=== PATIENT | female | born 1970 | race Caucasian/White ===

== ENCOUNTER 2020-01-29 08:14 | Emergency (ER) | payer OTHER ==
[2020-01-29 08:18] VITALS: BP 120/85; PULSE 86; TEMP 98.9; BMI 21.2
[2020-01-29] MEDS ORDERED: METOCLOPRAMIDE HCL INJECTION 10 MG/2 ML VIAL IVPB ONE (08:51)
[2020-01-29] MEDS ORDERED: SODIUM CHLORIDE 0.9% 500 ML INFUS.BAG IV ONE (08:51)
[2020-01-29] MEDS ORDERED: ACETAMINOPHEN 1000 MG/100 ML VIAL (NON FORMULARY) IVPB ONE (08:52)
[2020-01-29] MEDS ORDERED: METOCLOPRAMIDE HCL INJECTION 10 MG/2 ML VIAL ONE (08:56)
[2020-01-29] MEDS ORDERED: ACETAMINOPHEN INJECTION 100 ML IVPB ONE (08:57)
--- NOTE | 2020-01-29 08:57 | PDOC ---
History of Present Illness - General Chief Complaint: Headache Stated Complaint: HEADACHE Time Seen by Provider: 01/29/20 08:38 - History of Present Illness Initial Comments: Lucie Palomino is a 49 y/o female with PMH significant for anemia and s/p aneurysm clipping in 2018 at [facility] (Dr. Murphy) presenting today with headache for the past three days. States that the headache feels the same as her prior one 2 months ago. Reports left retro orbital sharp pain that radiates down to the neck. Took Tylenol for the past three days with minimal relief. States that the pain has been constant for the past three days with no changes in quality or severity. Reports nausea, no vomiting. No fever/chills. No vision changes/photophobia/phonophobia. No falls. No chest pain/shortness of breath. No abdominal pain. No back pain. No leg swelling. Past History - Medical History Allergies/Adverse Reactions: Allergies Allergy/AdvReac Type Severity Reaction Status Date / Time No Known Allergies Allergy Unverified 01/29/20 08:18 Home Medications: Ambulatory Orders NK [No Known Home Medication] 01/29/20 Anemia: Yes (Iron infusions) COPD: No Other medical history: Brain aneurism - Reproductive History Is Patient Now?: No - Psycho-Social/Smoking History Smoking History: Never smoked Information on smoking cessation initiated: No - Substance Abuse Hx (Audit-C & DAST Scrn) How often the patient has a drink containing alcohol: Never Score: In Men: 4 or > Positive; In Women: 3 or > Positive: 0 Screen Result (Pos requires Nsg. Audit-10AR): Negative In the last yr the pt used illegal drug/Rx for NonMed reason: No Score: Yes response is considered Positive: 0 Screen Result (Positive result requires Nsg. DAST-10): Negative Review of Systems - Review of Systems Comments:: GENERAL/CONSTITUTIONAL: No fever or chills. No weakness._ HEAD, EYES, EARS, NOSE AND THROAT: No change in vision. No change in hearing. No sore throat._ CARDIOVASCULAR: No chest pain or shortness of breath_ RESPIRATORY: Denies cough, hemoptysis_ GASTROINTESTINAL: Reports nausea. No vomiting, diarrhea or constipation._ GENITOURINARY: No dysuria, frequency, or change in urination._ MUSCULOSKELETAL: No joint or muscle swelling or pain. No neck or back pain._ SKIN: No rash_ NEUROLOGIC: Reports headache. No vertigo, loss of consciousness, or change in strength/sensation._ ENDOCRINE: No increased thirst. No abnormal weight change_ ALLERGIC/IMMUNOLOGIC: No hives or skin allergy._ *Physical Exam - Vital Signs Last Vital Signs Temp Pulse Resp BP Pulse Ox 98.9 F 86 18 120/85 98 01/29/20 08:16 01/29/20 08:16 01/29/20 08:16 01/29/20 08:16 01/29/20 08:16 - Physical Exam GENERAL: Awake, alert, and oriented to person/place/time, in no acute distress_ HEAD: No signs of trauma, normocephalic, atraumatic _ EYES: PERRLA, EOMI, sclera anicteric, conjunctiva clear_ ENT: Hearing grossly normal, nares patent, oropharynx clear without exudates. No uvular deviation. Moist mucosa_ NECK: Normal ROM, supple, no lymphadenopathy, JVD, or masses_ LUNGS: No distress, speaks in full sentences, clear to auscultation bilaterally _ HEART: Regular rate and rhythm, normal S1 and S2, no murmurs appreciated, peripheral pulses normal and equal bilaterally._ ABDOMEN: Soft, nontender, normoactive bowel sounds. No guarding, no rebound. No masses_ EXTREMITIES: Normal inspection, Normal range of motion, no edema. No clubbing or cyanosis_ NEUROLOGICAL: CN II-XII tested and intact. Sensation intact to sharp/dull differentiation in all extremities. Motor: Normal tone and bulk. No abnormal movements appreciated. No pronator drift. Strength tested and 5/5 in bilateral wrist flexion/extension, elbow flexion/extension, shoulder abduction, straight leg raise, knee flexion/extension, ankle dorsiflexion/plantarflexion. Patient ambulates with a steady gait. Coordination: Finger to nose and heel to valdez testing intact bilaterally. SKIN: Warm, Dry, normal turgor, no rashes or lesions noted_ Medical Decision Making - Medical Decision Making 01/29/20 08:52 49F hx of anemia and s/p aneurysm clipping in 2018 at [facility] presenting today with left sided retro-orbital pain radiating down left face to left neck. Same as prior headache 2 months ago. No focal neuro findings. DDx IBNLT SAH vs migraine vs tension headache. -fluids, tylenol, reglan, benadryl -CT head 01/29/20 09:54 CT head negative for acute intracranial pathology. No significant interval change from prior. 01/29/20 10:07 Pt reassessed. Reports significant improvement of pain. Plan to d/c home with PCP and neuro f/u. All questions answered. Return precautions given. Pt verbalized understanding and agreement with plan. Discharge - Discharge Information Problems reviewed: Yes Clinical Impression/Diagnosis: Migraine headache Qualifiers: Intractability: not intractable Condition: Improved Disposition: HOME - Admission No - Follow up/Referral - Patient Discharge Instructions Additional Instructions: Please make a follow up appointment with your primary care doctor and a neurologist to follow up your headaches. If you experience any new, worsening, or concerning symptoms, including new or worsening headache, dizziness, nausea/vomiting, vision changes, neck stiffness, or any other concerns, please return to the emergency department. - Post Discharge Activity
--- NOTE | 2020-01-29 09:04 | PDOC ---
Attending Attestation - Resident Resident Name: SantanaAntoninaMichael - ED Attending Attestation I have performed the following: I have examined & evaluated the patient, The case was reviewed & discussed with the resident, I agree w/resident's findings & plan, Exceptions are as noted - HPI HPI: 01/29/20 09:02 49y M hx of brain aneursym sp clipping presenting with headache. Pt notes frequent headaches that usually improves with motrin, however she was told she should not take motrin so she took tylenol without improvement for the past few days. similar in previous to her headaches, but not resolved with motrin associated with nausea. Pt denies any focal neuro sx including vision changes, numbness/tinglingw/eankess,. pt describes the pain as a pressure like pain onher R parital scalp and is non radiating. no recent trama, fever/chills, vomiing. - Physicial Exam PE: 01/29/20 11:16 Exam: GENERAL: The patient is awake, alert, and fully oriented, Nontoxic - in no acute distress. HEAD: Normocephalic, atraumatic. EYES: extraocular movements intact, sclera anicteric, conjunctiva clear. NEUROLOGICAL: No facial assymetry, Normal speech, moving all 4 exremities spontaneously and symmetrically PSYCH: Normal mood, normal affect. SKIN: Warm, Dry, normal turgor, - Medical Decision Making tension vs migraine headache consider related to anyrsum but low suspcion of bleed as similar tp previous will obtain CT of head to r/o bleed will give analgesia willr easess 01/29/20 11:16 01/29/20 11:16 pt feels significant releif no headache currently ct head neg will dc with PMD fu return precautions were discussed Discharge - Discharge Information Problems reviewed: Yes Clinical Impression/Diagnosis: Migraine headache Qualifiers: Migraine type: unspecified Status migrainosus presence: without status migrainosus Intractability: not intractable Qualified Code(s): G43.909 - Migraine, unspecified, not intractable, without status migrainosus Condition: Improved Disposition: HOME - Additional Discharge Information Prescriptions: Tramadol HCl 50 mg PO QID PRN #12 tablet MDD 4 PRN Reason: Pain - Follow up/Referral Referrals: [facility] [place] [facility] [place] [Provider Group] John Oliveira MD [Staff Physician] - - Patient Discharge Instructions Patient Printed Discharge Instructions: DI for Migraine Additional Instructions: Please make a follow up appointment with your primary care doctor and a neurologist to follow up your headaches. If you experience any new, worsening, or concerning symptoms, including new or worsening headache, dizziness, nausea/vomiting, vision changes, neck stiffness, or any other concerns, please return to the emergency department. - Post Discharge Activity
== END 2020-01-29 11:35 | disposition home or self-care (01) ==
LOC: JER 08:14
PROC: 3E033NZ Introduction of Analgesics, Hypnotics, Sedatives into Peripheral Vein, Percutaneous Approach (ICD-10-PCS; principal; 2020-01-29)
PROC: 3E033GC Introduction of Other Therapeutic Substance into Peripheral Vein, Percutaneous Approach (ICD-10-PCS; 2020-01-29)
DX: G43.909 Migraine, unspecified, not intractable, without status migrainosus (principal)
CPT/HCPCS: 70450-TC; 99285-25; J0131

== ENCOUNTER 2020-02-20 18:18 | Emergency (ER) | payer OTHER ==
[2020-02-20 18:30] VITALS: BP 147/91; PULSE 85; TEMP 98.2; BMI 21.2
--- NOTE | 2020-02-20 18:37 | PDOC ---
History of Present Illness - General Chief Complaint: Headache Stated Complaint: VOMITING Time Seen by Provider: 02/20/20 18:37 Past History - Medical History Allergies/Adverse Reactions: Allergies Allergy/AdvReac Type Severity Reaction Status Date / Time No Known Allergies Allergy Unverified 01/29/20 08:18 Home Medications: Ambulatory Orders Tramadol HCl 50 mg PO QID PRN #12 tablet MDD 4 01/29/20 Anemia: Yes (Iron infusions) COPD: No Other medical history: Brain Annurysm - Reproductive History Is Patient Now?: No - Psycho-Social/Smoking History Smoking History: Never smoked - Substance Abuse Hx (Audit-C & DAST Scrn) How often the patient has a drink containing alcohol: Never Score: In Men: 4 or > Positive; In Women: 3 or > Positive: 0 Screen Result (Pos requires Nsg. Audit-10AR): Negative *Physical Exam - Vital Signs Last Vital Signs Temp Pulse Resp BP Pulse Ox 98.2 F 85 20 147/91 98 02/20/20 18:24 02/20/20 18:24 02/20/20 18:24 02/20/20 18:24 02/20/20 18:24
[2020-02-20] MEDS ORDERED: METOCLOPRAMIDE HCL INJECTION 10 MG/2 ML VIAL IVPB ONE (18:42)
[2020-02-20] MEDS ORDERED: SODIUM CHLORIDE 0.9% 500 ML INFUS.BAG IV ONE (18:42)
[2020-02-20] MEDS ORDERED: ACETAMINOPHEN 500 MG TABLET (FP) PO ONE (18:42)
--- OUTSIDE RECORDS SUMMARY | 2020-02-20 18:42 | XMS ---
:1970 Author Organization [facility] Support Name Relationship Address Phone UE Unavailable Unavailable Unavailable UNK Unavailable Unavailable Unavailable BERNADINE PALMAKARTHIKEYAN FRIEND [address] [place] [address] SKYE PALMA Other [address] [address] Re-disclosure Warning The records that you are about to access may contain information from federally- assisted alcohol or drug abuse programs. If such information is present, then the following federally mandated warning applies: This information has been disclosed to you from records protected by federal confidentiality rules (42 CFR part 2). The federal rules prohibit you from making any further disclosure of this information unless further disclosure is expressly permitted by the written consent of the person to whom it pertains or as otherwise permitted by 42 CFR part 2. A general authorization for the release of medical or other information is NOT sufficient for this purpose. The Federal rules restrict any use of the information to criminally investigate or prosecute any alcohol or drug abuse patient.The records that you are about to access may contain highly sensitive health information, the redisclosure of which is protected by Article 27-F of the [facility] Public Health law. If you continue you may haveaccess to information: Regarding HIV / AIDS; Provided by facilities licensed or operated by the [facility] Office of Mental Health; or Provided by the [facility] Office for People With Developmental Disabilities. If such information is present, then the following [facility] mandated warning applies: This information has been disclosed to you from confidential records which are protected by state law. State law prohibits you from making any further disclosure of this information without the specific written consent of the person to whom it pertains, or as otherwise permitted by law. Any unauthorized further disclosure in violation of state law may result in a fine or residential sentence or both. A general authorization for the release of medical or other information is NOT sufficient authorization for further disclosure. Insurance Providers Payer name Policy type Policy ID Covered Covered constitution party's Policy P orlando / Coverage constitution party ID relationship to [employer] Inf ormation type fierro [place] MEDICAID [id number] SP [id number] [id number] CARE HMO/POS/EPO SELF PAY SP INSURANCE
[2020-02-20] MEDS ORDERED: FAMOTIDINE 20 MG/50 ML IVPB 20 MG/50 ML MG IVPB ONE (18:49)
[2020-02-20] MEDS ORDERED: ACETAMINOPHEN 1000 MG/100 ML VIAL (NON FORMULARY) IVPB ONE (18:49)
--- NOTE | 2020-02-20 18:50 | PDOC ---
History of Present Illness <Lucie Mercado - Last Filed: 02/20/20 21:51> - General History Source: Patient, Family Exam Limitations: No Limitations <Isela Lala - Last Filed: 02/20/20 21:53> - General Chief Complaint: Headache Stated Complaint: VOMITING Time Seen by Provider: 02/20/20 18:37 Past History - Medical History Anemia: Yes (Iron infusions) COPD: No Other medical history: Brain Annurysm - Reproductive History Is Patient Now?: No - Psycho-Social/Smoking History Smoking History: Never smoked - Substance Abuse Hx (Audit-C & DAST Scrn) How often the patient has a drink containing alcohol: Never Score: In Men: 4 or > Positive; In Women: 3 or > Positive: 0 Screen Result (Pos requires Nsg. Audit-10AR): Negative <Lucie Mercado - Last Filed: 02/20/20 21:51> <Isela Lala - Last Filed: 02/20/20 21:53> - Medical History Allergies/Adverse Reactions: Allergies Allergy/AdvReac Type Severity Reaction Status Date / Time No Known Allergies Allergy Unverified 01/29/20 08:18 Home Medications: Ambulatory Orders Tramadol HCl 50 mg PO QID PRN #12 tablet MDD 4 01/29/20 Metoclopramide HCl [Reglan -] 10 mg PO TID PRN #21 tablet 02/20/20 Prochlorperazine Maleate [Compazine] 5 mg PO TID PRN #21 tablet 02/20/20 *Physical Exam - Vital Signs Last Vital Signs Temp Pulse Resp BP Pulse Ox 98.2 F 85 20 147/91 98 02/20/20 18:24 02/20/20 18:24 02/20/20 18:24 02/20/20 18:24 02/20/20 18:24 <Lucie Mercado - Last Filed: 02/20/20 21:51> - Vital Signs Last Vital Signs Temp Pulse Resp BP Pulse Ox 98.2 F 85 20 147/91 98 02/20/20 18:24 02/20/20 18:24 02/20/20 18:24 02/20/20 18:24 02/20/20 18:24 <Isela Lala - Last Filed: 02/20/20 21:53> ED Treatment Course - LABORATORY CBC & Chemistry Diagram: 02/20/20 19:00 02/20/20 19:00 - RADIOLOGY Radiology Studies Ordered: Category Date Time Status HEAD CT WITHOUT CONTRAST [CT] Stat CT Scan 02/20/20 18:46 Ordered <Lucie Mercado - Last Filed: 02/20/20 21:51> - LABORATORY CBC & Chemistry Diagram: 02/20/20 19:00 02/20/20 19:00 - ADDITIONAL ORDERS Additional order review: Laboratory Results 02/20/20 02/20/20 02/20/20 19:05 19:00 19:00 Sodium 140 Potassium 3.4 L Chloride 102 Carbon Dioxide 30 Anion Gap 7 L BUN 11.2 Creatinine 0.6 Est GFR (CKD-EPI)AfAm 124.92 Est GFR (CKD-EPI)NonAf 107.78 Random Glucose 100 Calcium 9.1 Phosphorus 3.9 Magnesium 2.1 Total Bilirubin 0.2 AST 10 L ALT 16 Alkaline Phosphatase 57 Creatine Kinase 47 Troponin I < 0.02 Total Protein 7.8 Albumin 4.1 Lipase 79 Serum , Qual Negative Urine HCG, Qual Negative 02/20/20 19:00 RBC 4.54 MCV 82.3 MCHC 32.0 RDW 30.9 H MPV 9.1 Neutrophils % 70.0 Lymphocytes % 18.5 Monocytes % 7.7 Eosinophils % 2.2 D Basophils % 1.6 - Medications Given in the ED: ED Medications Discontinued Medications Generic Name Dose Route Start Last Admin Trade Name Freq PRN Reason Stop Dose Admin Acetaminophen 975 mg 02/20/20 18:42 02/20/20 19:14 Tylenol - PO 02/20/20 18:43 Not Given ONCE ONE Acetaminophen 1,000 mg 02/20/20 18:49 02/20/20 19:14 Ofirmev Injection - IVPB 02/20/20 18:50 1,000 mg ONCE ONE Administration Famotidine/Sodium Chloride 20 mg in 50 mls @ 100 mls/hr 02/20/20 18:49 02/20/20 19:14 Pepcid 20 Mg Premixed Ivpb - IVPB 02/20/20 19:18 100 mls/hr ONCE ONE Administration Potassium Chloride 10 meq in 100 mls @ 100 mls/hr 02/20/20 19:45 02/20/20 20:33 Potassium Chloride 10 Meq Premix Ivpb - IVPB 02/20/20 20:44 100 mls/hr Q60M ABDIEL Administration Metoclopramide HCl 10 mg 02/20/20 18:42 02/20/20 19:33 Reglan Injection - IVPB 02/20/20 18:43 10 mg ONCE ONE Administration Prochlorperazine Edisylate 10 mg 02/20/20 19:45 02/20/20 19:59 Compazine Injection - IVPB 02/20/20 19:46 10 mg ONCE ONE Administration Sodium Chloride 1,000 ml 02/20/20 18:42 02/20/20 19:13 Normal Saline - IV 02/20/20 18:43 1,000 ml ONCE ONE Administration <Isela Lala - Last Filed: 02/20/20 21:53> Medical Decision Making - Medical Decision Making 02/20/20 19:03 HPI: 49yo F hx anemia and s/p aneurysm clipping in 2018 at [facility] (Dr. Murphy) presents from home c/o 3 days gradual onset pressure type intermittent headache of moving location (bitemporal to occiput/back of neck) nothing makes better or worse with associated nausea and emesis x30. Today after multiple episodes of emesis pt has developed epigastric pain and had minimal bright red blood in emesis. Pt tried tramadol only today without improvement. Pt states presentation exactly same as 2 years ago when had aneurysm but at that time she had L sided eyelid drooping which is not present now. Presentation also the same as last 2 ED visits (last 1mo ago) when had no acute bleed on CTH and was discharged home. Last headache was 1mo ago, came here to ED. Denies photophobia, vision changes, numbness/tingling, weakness, facial droop, difficulty walking or talking, dizziness, syncope, CP, SOB, cough, recent illness, neck stiffness, fever, back pain. Called neurosurgeon after last visit who said everything was fine due to lack of blood in CTH. Scheduled to visit PCP next week and get referral for Neurology. Denies etoh/smoking/drugs. ROS: Constitutional: Positive for chills. Negative for fever, fatigue, diaphoresis. HENT: Negative for sore throat, rhinorrhea, congestion. Eyes: Negative for visual disturbance. Respiratory: Negative for shortness of breath, cough, and wheezing. Cardiovascular: Negative for chest pain, palpitations, and leg swelling. Gastrointestinal: Positive for nausea, and vomiting. Negative for abdominal pain, blood in stool, constipation, diarrhea. Genitourinary: Negative for dysuria, flank pain, and hematuria. Musculoskeletal: Negative for myalgias, back pain, and neck pain. Skin: Negative for rash. Neurological: Positive for headaches. Negative for light-headedness, dizziness, vertigo, syncope, weakness, numbness. Psychiatric/Behavioral: Negative for behavioral problems and confusion. PE: Gen: Alert, NAD, uncomfortable-appearing, dry heaving HEENT: PERRL, EOMI, MMM, NCAT. No conjunctival pallor. Sclera are non-icteric. CV: Regular rate and rhythm. No murmurs, rubs, or gallops. PULM: No resp distress. CTAB, no wheezes, rales, or rhonchi. ABD: soft, NT/ND, no rebound tenderness or guarding, no CVA tenderness. BACK: No TTP of c/t/l-spine. No step-offs or deformities. MSK: No bony deformities. 2+ pulses in all extremities. NEURO: AAOx3. PERRL. No facial droop. CN 2-12 intact. 5/5 strength in all extremities. Sensation to light touch intact in all extremities. No abnormal nystagmus. Normal gait. EXTREMITIES: No cyanosis. No clubbing. No edema. No calf tenderness. PSYCH: Normal mood and thought pattern. SKIN: Warm and dry. Normal capillary refill. No rashes. No jaundice. MDM: 49yo F hx anemia and s/p aneurysm clipping in 2018 at [facility] (Dr. Murphy) presents from home c/o 3 days intermittent headache with associated nausea and emesis x30, similar to prior headaches (1 of which was 2/2 aneurysm, most benign). Hemodynamically stable, afebrile, neurologically intact. Ddx: ICH, aneurysm, migraine, cluster headache, tension headache, infection, metabolic derangement, anemia, reflux -EKG -CTH -CBC,CMP,Mg,Phos,Lipase,HCG,Cardiac profile -IVF -Pain and nausea management -Dispo: pending workup and reassessment 02/20/20 19:43 Labs reviewed. No concerning findings. K 3.4 -Replete K EKG reviewed: normal sinus rhythm, 83bpm, normal axis, normal intervals, TWI in III, biphasic T-wave in V3, no ST elevations or depressions, no priors for c omparison 02/20/20 21:41 CTH reviewed: no acute pathology Pt's pain resolved. Safe for d/c. Will discharge home with PCP and neuro f/u. Return precautions given. Pt understands all discharge instructions and all questions were answered. <Lucie Mercado - Last Filed: 02/20/20 21:51> Discharge - Discharge Information Problems reviewed: Yes - Admission No <Lucie Mercado - Last Filed: 02/20/20 21:51> <Isela Lala - Last Filed: 02/20/20 21:53> - Discharge Information Clinical Impression/Diagnosis: Headache Qualifiers: Headache type: other headache syndrome Qualified Code(s): G44.89 - Other headache syndrome Condition: Improved Disposition: HOME - Additional Discharge Information Prescriptions: Prochlorperazine Maleate [Compazine] 5 mg PO TID PRN #21 tablet PRN Reason: Headache Metoclopramide HCl [Reglan -] 10 mg PO TID PRN #21 tablet PRN Reason: Nausea And/Or Vomiting - Follow up/Referral Referrals: Zen Monsalve MD [Staff Physician] - Peewee Pedro MD [Staff Physician] - John Oliveira MD [Staff Physician] - - Patient Discharge Instructions Patient Printed Discharge Instructions: DI for Headache Additional Instructions: Lo delgado visto en el Departamento de Emergencias por correia dolor de ahsan. Correia ECG, tomografa computarizada de correia ahsan y los anlisis de laboratorio no muestran signos de ashley condicin emergente en piper momento. Si siente dolor, puede lakisha Tylenol o ibuprofeno cesar se indica en el frasco del medicamento, lilian no exceda los 3 g de ibuprofeno o 4 g de Tylenol al da. Tambin hemos enviado Reglan y Compazine a correia farmacia; tmelos segn sea necesario segn lo prescrito para las nuseas y el dolor de ahsan. Margo un seguimiento con correia mdico de atencin primaria dentro de 1 semana. Dereje le hemos remitido a un neurlogo; llame a correia consultorio por la maana para programar ashley davion de seguimiento. Regrese al Departamento de Emergencias inmediatamente si experimenta dificultad para hablar o caminar, empeoramiento del dolor de ahsan o vmitos, desmayo o cualquier otro sntoma nuevo o que empeora. You have been seen in the Emergency Department for your headache. Your EKG, CT scan of your head, and labs show no signs concerning for an emergent condition at this time. If you experience pain, you can take Tylenol or Ibuprofen as directed on the medication bottle, but do not exceed 3g of Ibuprofen or 4g of Tylenol a day. We have also sent Reglan and Compazine to your pharmacy - take as needed as prescribed for nausea and headache. Follow-up with your primary care doctor within 1 week. We have also given you a referral to a Neurologist - call his office in the morning to set up a follow-up appointment. Return to the Emergency Department immediately if you experience difficulty speaking or walking, worsening headache or vomiting, passing out, or any other new or worsening symptom. Print Language: TURKMEN
[2020-02-20 19:10] LABS: BASO % 1.6 % (0-2.0); EOS % 2.2 % (0-4.5); HEMATOCRIT 37.3 % (32.4-45.2); HEMOGLOBIN 11.9 GM/dL (10.7-15.3); LYMPH % 18.5 % (8-40); MCH 26.3 pg (25.7-33.7); MEAN CELL VOLUME 82.3 fl (80-96); MEAN PLT VOLUME 9.1 fl (7.5-11.1); MONO % 7.7 % (3.8-10.2); PLATELET COUNT 171 K/MM3 (134-434); RBC 4.54 M/mm3 (3.60-5.2); RDW 30.9 % (11.6-15.6)
[2020-02-20 19:38] LABS: ALBUMIN 4.1 g/dl (3.4-5.0); ALK PHOS 57 U/L (45-117); ANION GAP 7 MMOL/L (8-16); BILIRUBIN,TOTAL 0.2 mg/dL (0.2-1); BLOOD UREA NITROGEN 11.2 mg/dL (7-18); CALCIUM 9.1 mg/dL (8.5-10.1); CHLORIDE 102 mmol/L (98-107); CO2 30 mmol/L (21-32); CREATININE 0.6 mg/dL (0.55-1.3); GLUCOSE,RANDOM 100 mg/dL (74-106); LIPASE 79 U/L (73-393); MAGNESIUM 2.1 mg/dL (1.8-2.4); PHOSPHOROUS 3.9 mg/dL (2.5-4.9); POTASSIUM 3.4 mmol/L (3.5-5.1); SGOT/AST 10 U/L (15-37); SGPT/ALT 16 U/L (13-61); SODIUM 140 mmol/L (136-145); TOT PROT 7.8 g/dl (6.4-8.2)
[2020-02-20] MEDS ORDERED: PROCHLORPERAZINE INJECTION 10 MG/2 ML VIAL IVPB ONE (19:45)
[2020-02-20] MEDS ORDERED: KCL 10 MEQ IVPB 10 MEQ/100 ML INFUS.BAG IVPB SCH (19:45)
--- NOTE | 2020-02-20 19:48 | PDOC ---
Documentation entered by Jose Alejandro Mendes SCRIBE, acting as scribe for Isela Lala MD. Isela Lala MD: This documentation has been prepared by the Marty del [facility]sario inJose Alejandro SCRIBE, under my direction and personally reviewed by me in its entirety. I confirm that the documentation accurately reflects all work, treatment, procedures, and medical decision making performed by me. Attending Attestation - Resident Resident Name: Lucie Mercado - ED Attending Attestation I have performed the following: I have examined & evaluated the patient, The case was reviewed & discussed with the resident, I agree w/resident's findings & plan, Exceptions are as noted - HPI HPI: 02/20/20 18:47 The patient is a 49 year old female with a significant past medical history of brain aneurysm sp clipping who presents to the emergency department for evaluation of a headache that began three days ago. The patient reports nausea and approximately 30 episodes of NBNB vomiting which is now bloody emesis. She endorses this is the same presentation as one month ago and two years ago when she needed an aneurysm clipping. The patient notes having a disabled, inactive aneurysm. Denies focal neurological deficits. Denies fever, chills, chest pain, SOB, palpitation, dizziness, weakness, D, abdominal pain, bladder and bowel problems, leg swelling, No new changes in medications. Allergies: None Past Medical History: anemia and brain aneurysm sp clipping Social history: Lives with family. No tobacco, ETOH or drug use. Surgical history: brain aneurysm sp clipping (2018, Dr. Jeffrey Flaherty) Meds: as documented in EMR Neurologist: Dr. Oliveira 02/20/20 19:50 - Physicial Exam PE: 02/20/20 18:45 General: awake and alert, NAD. HEENT: NCAT, PERRL, EOMI, clear conjunctiva, anicteric, CN II to XII grossly intact, moist mucous membranes, clear oropharynx, no oral lesions.. Neck: neck supple, FROM Resp: CTAB, normal and even respirations, no respiratory distress CVS: RRR, no murmurs, 2+ peripheral pulses throughout, no peripheral edema Abdomen: soft, NTND, no rebound or guarding. No CVAT. Back: nontender, normal inspection and ROM] MSK: no edema, NIETO x4, ROM intact. No clubbing or cyanosis. normal bulk and tone. 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 SILT in all extrem. speech clear. b/l finger to nose and heel to valdez in tact equal and symmetric Skin: warm and well perfused, cap refill <2 sec, normal color 02/20/20 19:46 02/20/20 19:50 - Medical Decision Making 02/20/20 19:49 Vital Signs Temp Pulse Resp BP Pulse Ox 98.2 F 85 20 147/91 98 02/20/20 18:24 02/20/20 18:24 02/20/20 18:24 02/20/20 18:24 02/20/20 18:24 DDX headache: migraine, tension, cluster headache, SAH, CVA, head bleed/ICH. MDM: The patient presents with an acute onset headache for {Hours/Days} in duration. Patient has no past history of headaches. There {Is/Is Not} a history of anticoagulation, trauma, , cancer or immunocompromised state. Mental status was normal, no neurological deficits were noted. IV was placed and analgesia given (IVF, tylenol, reglan and compazine) given with improvement of symptoms. CT head was negative for acute bleed, infarct, mass, or shift. Based on the patient's history and physical there is very low clinical suspicion for significant intracranial pathology with no focal deficits, and no abnormalities on CT scan. The headache was NOT sudden onset, NOT maximal at onset, there are NO neurologic findings, the patient does NOT have a fever, the patient does NOT have any jaw claudication, the patient does NOT endorse a clotting disorder, patient DENIES any trauma or eye pain Kernig and Brudzinski signs are negative, no petechiae, no photophobia, no dysarthria, no facial asymmetry, and no focal deficits. Very low clinical suspic ion for meningitis. Patient denies new weakness on one side of the body, diplopia, vertigo, slurred speech, headache, or difficulty walking. The patient improved significantly and was discharged in stable condition. Recommendations were given for follow-up with PCP/neuro in 1-2 days and to return to the ED for worsening of headache or any other concerns 02/20/20 21:50 Heart Score/ECG Review #1 ECG reviewed & interpreted by me at: 20:00 General ECG Interpretation: Sinus Rhythm, Normal Rate, Normal Intervals 02/20/20 20:14 EKG normal sinus rhythm 83 bpm, no interval abnormalities, narrow QRS, ST and T wave segments and morphology normal. Nonspecific T wave abnormalities Discharge - Discharge Information Problems reviewed: Yes Clinical Impression/Diagnosis: Headache Qualifiers: Headache type: other headache syndrome Qualified Code(s): G44.89 - Other headache syndrome Condition: Improved Disposition: HOME - Admission No - Additional Discharge Information Prescriptions: Prochlorperazine Maleate [Compazine] 5 mg PO TID PRN #21 tablet PRN Reason: Headache Metoclopramide HCl [Reglan -] 10 mg PO TID PRN #21 tablet PRN Reason: Nausea And/Or Vomiting - Follow up/Referral Referrals: John Oliveira MD [Staff Physician] - Zen Monsalve MD [Staff Physician] - Peewee Pedro MD [Staff Physician] - - Patient Discharge Instructions Patient Printed Discharge Instructions: DI for Headache Additional Instructions: Lo delgado visto en el Departamento de Emergencias por correia dolor de ahsan. Correia ECG, tomografa computarizada de correia ahsan y los anlisis de laboratorio no muestran signos de ashley condicin emergente en piper momento. Si siente dolor, puede lakisha Tylenol o ibuprofeno cesar se indica en el frasco del medicamento, lilian no exceda los 3 g de ibuprofeno o 4 g de Tylenol al da. Dereje hemos enviado Reglan y Compazine a correia farmacia; tmelos segn sea necesario segn lo prescrito para las nuseas y el dolor de ahsan. Margo un seguimiento con correia mdico de atencin primaria dentro de 1 semana. Dereje le hemos remitido a un neurlogo; llame a correia consultorio por la maana para programar ashley davion de seguimiento. Regrese al Departamento de Emergencias inmediatamente si experimenta dificultad para hablar o caminar, empeoramiento del dolor de ahsan o vmitos, desmayo o cualquier otro sntoma nuevo o que empeora. You have been seen in the Emergency Department for your headache. Your EKG, CT scan of your head, and labs show no signs concerning for an emergent condition at this time. If you experience pain, you can take Tylenol or Ibuprofen as directed on the medication bottle, but do not exceed 3g of Ibuprofen or 4g of Tylenol a day. We have also sent Reglan and Compazine to your pharmacy - take as needed as prescribed for nausea and headache. Follow-up with your primary care doctor within 1 week. We have also given you a referral to a Neurologist - call his office in the morning to set up a follow-up appointment. Return to the Emergency Department immediately if you experience difficulty speaking or walking, worsening headache or vomiting, passing out, or any other new or worsening symptom. - Post Discharge Activity
--- NOTE | 2020-02-21 20:02 | EKG ---
Test Reason : Blood Pressure : / mmHG Vent. Rate : 083 BPM Atrial Rate : 083 BPM P-R Int : 188 ms QRS Dur : 098 ms QT Int : 402 ms P-R-T Axes : 041 039 017 degrees QTc Int : 472 ms NORMAL SINUS RHYTHM NORMAL ECG NO PREVIOUS ECGS AVAILABLE Confirmed by ALBER INTERIANO MD ([id number]) on 02/21/2020 8:01:48 PM Referred By: Confirmed By:ALBER INTERIANO MD
== END 2020-02-20 22:14 | disposition home or self-care (01) ==
LOC: JER 18:18
PROC: 3E0333Z Introduction of Anti-inflammatory into Peripheral Vein, Percutaneous Approach (ICD-10-PCS; principal; 2020-02-20)
PROC: 3E033GC Introduction of Other Therapeutic Substance into Peripheral Vein, Percutaneous Approach (ICD-10-PCS; 2020-02-20)
DX: G44.89 Other headache syndrome (principal)
CPT/HCPCS: 36415; 70450-TC; 80053; 82550; 83690; 83735; 84100; 84484; 84703; 85025; 93005; 93010; 99285-25; J0131

== ENCOUNTER 2022-01-28 04:27 | Emergency (ER) | payer OTHER ==
[2022-01-28 04:45] VITALS: RESP 18; TEMP 97.8; BMI 24.7
[2022-01-28] MEDS ORDERED: ACETAMINOPHEN 1000 MG/100 ML BAG IVPB ONE (04:58)
[2022-01-28] MEDS ORDERED: LACTATED RINGERS SOLUTION 1000 ML INFUS.BAG IV ONE (04:58)
[2022-01-28] MEDS ORDERED: METOCLOPRAMIDE HCL INJECTION 10 MG/2 ML VIAL IVPB ONE (04:58)
[2022-01-28] MEDS ORDERED: METOCLOPRAMIDE HCL INJECTION 10 MG/2 ML VIAL ONE (05:03)
[2022-01-28] MEDS ORDERED: ACETAMINOPHEN INJECTION 100 ML IVPB ONE (05:03)
[2022-01-28 05:47] LABS: EOS % 3.8 % (0-4.5); HEMATOCRIT 33.4 % (32.4-45.2); HEMOGLOBIN 10.4 GM/dL (10.7-15.3); LYMPH % 21.9 % (8-40); MCH 23.1 pg (25.7-33.7); MCHC 31.1 g/dl (32.0-36.0); MEAN CELL VOLUME 74.2 fl (80-96); MEAN PLT VOLUME 9.2 fl (7.5-11.1); MONO % 6.2 % (3.8-10.2); NEUT % 66.1 % (42.8-82.8); PLATELET COUNT 220 10^3/uL (134-434); RDW 18.1 % (11.6-15.6); WHITE BLOOD COUNT 5.5 K/mm3 (4.0-10.0)
[2022-01-28 06:08] LABS: CALCIUM 8.7 mg/dL (8.5-10.1)
[2022-01-28 06:09] LABS: ALBUMIN 4.1 g/dl (3.4-5.0); BLOOD UREA NITROGEN 8.9 mg/dL (7-18)
[2022-01-28 06:12] LABS: CREATININE 0.6 mg/dL (0.55-1.3)
[2022-01-28 06:13] LABS: TOT PROT 8.1 g/dl (6.4-8.2)
[2022-01-28 06:14] LABS: BILIRUBIN,TOTAL 0.3 mg/dL (0.2-1)
[2022-01-28] MEDS ORDERED: methylPREDNISolone NA SUCC 125 MG/2 ML VIAL IVPUSH ONE (06:27)
[2022-01-28] MEDS ORDERED: methylPREDNISolone NA SUCC 125 MG/2 ML VIAL ONE (06:45)
[2022-01-28 06:59] LABS: ERYTHROCYTE SEDIMENTATION RATE 8 mm/hr (0-30)
[2022-01-28 11:26] VITALS: BP 131/79; PULSE 74
[2022-01-28] MEDS ORDERED: LABETALOL HCL 5 MG/1 ML (100MG/20 ML VIAL) IVPUSH ONE (11:29)
[2022-01-28] MEDS ORDERED: LABETALOL HCL 5 MG/1 ML (100MG/20 ML VIAL) ONE (11:30)
== END 2022-01-28 11:41 | disposition short-term general hospital (02) ==
LOC: JER 04:27
PROC: 3E033NZ Introduction of Analgesics, Hypnotics, Sedatives into Peripheral Vein, Percutaneous Approach (ICD-10-PCS; principal; 2022-01-28)
PROC: 3E033GC Introduction of Other Therapeutic Substance into Peripheral Vein, Percutaneous Approach (ICD-10-PCS; 2022-01-28)
PROC: 3E033GC Introduction of Other Therapeutic Substance into Peripheral Vein, Percutaneous Approach (ICD-10-PCS; 2022-01-28)
PROC: 3E033GC Introduction of Other Therapeutic Substance into Peripheral Vein, Percutaneous Approach (ICD-10-PCS; 2022-01-28)
PROC: 3E033GC Introduction of Other Therapeutic Substance into Peripheral Vein, Percutaneous Approach (ICD-10-PCS; 2022-01-28)
PROC: 3E033GC Introduction of Other Therapeutic Substance into Peripheral Vein, Percutaneous Approach (ICD-10-PCS; 2022-01-28)
DX: R51.9 Headache, unspecified (principal)
CPT/HCPCS: 36415; 70450-TC; 70496-TC; 80053; 85025; 85651; 93005; 93010; 99285-25; C9803-CS; Q9967; U0003; U0005

== ENCOUNTER 2022-05-25 09:35 | Emergency (ER) | payer OTHER ==
[2022-05-25 09:44] VITALS: BP 131/76; PULSE 91; RESP 18; TEMP 98.7; BMI 22.3
[2022-05-25] MEDS ORDERED: IBUPROFEN 400 MG TABLET (FP) PO ONE ×2 (10:23→11:03)
[2022-05-25] MEDS ORDERED: LIDOCAINE 5% TOPICAL PATCH TP ONE (10:24)
[2022-05-25] MEDS ORDERED: LIDOCAINE 5% TOPICAL PATCH ONE (11:03)
[2022-05-25 12:56] LABS: PH,URINE 7.5 (5.0-8.0); URINE APPEARANCE CLEAR; URINE BILIRUBIN NEGATIVE (NEGATIVE); URINE COLOR YELLOW; URINE GLUCOSE (UA) NEGATIVE (NEGATIVE); URINE KETONE NEGATIVE (NEGATIVE); URINE LEUK ESTERASE NEGATIVE (NEGATIVE); URINE NITRITE NEGATIVE (NEGATIVE); URINE PROTEIN NEGATIVE (NEGATIVE); URINE UROBILINOGEN 0.2 mg/dL (0.2-1.0)
[2022-05-25] MEDS ORDERED: LIDOCAINE PATCH REMOVAL MC SCH (22:00)
== END 2022-05-25 12:52 | disposition home or self-care (01) ==
LOC: JER 09:35
DX: M54.50 Low back pain, unspecified (principal)
CPT/HCPCS: 81003; 87086; 99283-25